=== PATIENT | male | born 1970 | race Caucasian/White ===

== ENCOUNTER 2017-02-14 13:12 | Outpatient (CLI) | payer OTHER | END 2017-02-14 23:00 | LOC: LAB SRH 13:12 | DX: F11.20 Opioid dependence, uncomplicated (principal) | CPT/HCPCS: 90074; 90100; 95059 ==

== ENCOUNTER 2017-04-10 12:07 | Outpatient (CLI) | payer OTHER | END 2017-04-10 23:00 | LOC: LAB SRH 12:07 | DX: F31.12 Bipolar disorder, current episode manic without psychotic features, moderate (principal); R79.89 Other specified abnormal findings of blood chemistry | CPT/HCPCS: 90074; 90100; 91286; 91589; 92690; 95059 ==